=== PATIENT | male | born 1950 | race Two or more races ===

== ENCOUNTER 2019-04-27 06:36 | Day surgery (SDC) | payer OTHER ==
[~2019-04-27] VITALS: Ht 170.2 cm; Wt 130.6 kg
[2019-04-27] MEDS ORDERED: LIDOCAINE 2%HCL (LOCAL ANESTH.) INJ 20ML MDV ONE ×4 (07:21→08:33)
[2019-04-27] MEDS ORDERED: IOHEXOL 350 MG/ML 100ML IJ ONE ×2 (07:21→08:03)
[2019-04-27] MEDS ORDERED: SODIUM CHL 0.9% 0 ML ONE (08:02)
[2019-04-27] MEDS ORDERED: fentaNYL CITRATE 100 MCG/2 ML VL ONE (08:02)
[2019-04-27] MEDS ORDERED: ANGIOMAX 250 MG VIAL IV ONE (08:02)
[2019-04-27] MEDS ORDERED: MIDAZOLAM HCL 1MG/1ML-2 ML VIAL ONE (08:02)
[2019-04-27 08:11] LABS: INR 1.01 (0.9-1.15); Partial Thromboplastin Time 25.9 sec (23.64-32.05)
[2019-04-27] MEDS ORDERED: ACETAMINOPHEN 325 MG TAB PO PRN (10:00)
[2019-04-27 10:34] LABS: Hematocrit 48.3 % (41.0-53.0); Hemoglobin 15.9 g/dL (13.5-17.5)
[2019-04-27] MEDS ORDERED: LISI-275 PO (11:17)
[2019-04-27] MEDS ORDERED: TAMS0.4C36 PO (11:17)
[2019-04-27] MEDS ORDERED: SIMV-8 PO (11:17)
[2019-04-27] MEDS ORDERED: CHOL100040 PO (11:17)
[2019-04-27] MEDS ORDERED: MAGN400T5 PO (11:17)
[2019-04-27] MEDS ORDERED: ASPI-404 PO (11:17)
--- NOTE | 2019-04-27 15:25 | NUR ---
1430- Per physician, patient called into office from home with complaint of groin bleed from access site. Per physician patient was directed to come back to laboratory equipment cleaner. 1500- Patient arrived to laboratory equipment cleaner ambulating, escorted to a gurney. The right groin access site assessed. Dressing intact with the gauze being 90% saturated with blood. No hematoma noted. Dressing changed and no active bleeding noted and no hematoma noted. No acute pain complaint from patient noted. Instructions given to patient and spouse regarding precautions for hematoma and bleeding and to go to ER department for any future incidents. Patient and family verbalized understanding. 1520- Patient and family escorted to exit with no incident.
== END 2019-04-27 12:00 | disposition home or self-care (01) ==
LOC: CATH 06:36
PROVIDERS: ATTEND Internal Medicine Cardiovascular Disease
DX: I25.2 Old myocardial infarction (principal); I25.118 Atherosclerotic heart disease of native coronary artery with other forms of angina pectoris; E11.22 Type 2 diabetes mellitus with diabetic chronic kidney disease; I12.9 Hypertensive chronic kidney disease with stage 1 through stage 4 chronic kidney disease, or unspecified chronic kidney disease; N18.3 Chronic kidney disease, stage 3 (moderate); G43.909 Migraine, unspecified, not intractable, without status migrainosus; E78.5 Hyperlipidemia, unspecified; Z79.82 Long term (current) use of aspirin; Z79.899 Other long term (current) drug therapy
CPT/HCPCS: 36415; 71045; 85014; 85018; 85610; 85730; 93460; 99152; 99153; C1751; J2250

== ENCOUNTER 2021-03-14 11:42 | Emergency (ER) | payer MEDICARE ==
[~2021-03-14] VITALS: Ht 172.7 cm; Wt 128.4 kg
[~2021-03-14 11:42] MED LIST: ASPI-543 PO; CHOL100040 PO; LISI-275 PO; MAGN400T40 PO; SIMV-8 PO; TAMS0.4C36 PO
[2021-03-14 12:09] VITALS: BP 111/69
[2021-03-14] MEDS ORDERED: HYDROcodone-ACET 5/325MG TAB PO ONE (13:15)
== END 2021-03-14 13:46 | disposition home or self-care (01) ==
LOC: ER 11:42
DX: M43.6 Torticollis (principal); E11.9 Type 2 diabetes mellitus without complications; Z79.82 Long term (current) use of aspirin; Z79.899 Other long term (current) drug therapy
CPT/HCPCS: 72040

== ENCOUNTER 2024-12-06 06:36 | Day surgery (SDC) | payer OTHER ==
[2024-12-06] VITALS (8 sets, daily range): BP systolic 126–154; BP diastolic 67–77; PULSE 54–69; RESP 13–20; TEMP 97.9; O2SAT 92–96
[~2024-12-06] VITALS: Ht 170.2 cm; Wt 123.8 kg
[~2024-12-06 06:36] MED LIST changes: +AMLO1TAB22 PO; +ATOR20TA50 PO; -CHOL100040 PO; +CHOL20007 PO; +GABA-1250 PO; -LISI-275 PO; +LISI2.5T47 PO; +MELO7.5T7 PO; -SIMV-8 PO; -TAMS0.4C36 PO; +TAMS0.4C39 PO; +ZINC50TA7 PO
[2024-12-06] MEDS ORDERED: IODIXANOL 320MG/ML 100ML BTL IV ONE (07:25)
[2024-12-06] MEDS ORDERED: ANGIOMAX 250 MG VIAL IV ONE (07:52)
[2024-12-06] MEDS ORDERED: LIDOCAINE 2%HCL (LOCAL ANESTH.) INJ 20ML MDV ONE (07:53)
[2024-12-06] MEDS ORDERED: MIDAZOLAM HCL 2MG/2ML 2ml VIAL (1mg/ml) ONE (07:53)
[2024-12-06] MEDS ORDERED: fentaNYL CITRATE 100 MCG/2 ML VL ONE (07:53)
[2024-12-06] MEDS ORDERED: HEPARIN SODIUM (PORCINE) 5000 UNITS/ML 1ML VIAL ONE (08:20)
[2024-12-06] MEDS ORDERED: VERAPAMIL 2.5MG/ML INJ 2ML VIAL IV ONE (08:20)
--- NOTE | 2024-12-06 09:00 | DVHOP2 ---
Operative Report Operative Report CARDIAC [facility]EWEL [facility] PROCEDURE REPORT [place], [place] Date of Service: 12/06/24 Hosiery Mater: Pratik Mckinney MD PROCEDURES PERFORMED: Coronary angiogram, left heart catheterization, conscious sedation administration and supervision, less than 15 minutes; fluoroscopy use and interpretation. PREOPERATIVE DIAGNOSES: Abnormal stress test with CCS class 3 angina, POSTOP DIAGNOSIS: cad DESCRIPTION OF PROCEDURE: The patient or appropriate family signed informed consent understanding the risks, benefits and alternatives of the procedure, they wished to proceed. The patient was brought to the cardiac labor mediator in n.p.o. state. The patient was prepped in a sterile fashion. Sedation was used per cardiac cath protocol. I administered 2 mL of 2% lidocaine to the right wrist. With an antegrade front wall puncture. I cannulated the right radial artery and placed a 6-[place] Glidesheath slender. Next, an intra-arterial spasmolytic was administered. Next, a - 6French Dustin catheter and XXXXX guide and were used for coronary angiogram and LVEDP measurement and pressure pullback. At the completion of procedure, all guides and wires were removed, and there were no immediate complications. 4000 U of IV heparin given. FINDINGS: RCA: Moderate vessel off the right sinus of Valsalva, there is no severe flow limiting stenosis. mild diffuse plaquing. LEFT MAIN: Moderate size left main, it bifurcates into LAD and circumflex. no severe stenosis. CIRCUMFLEX: Moderate caliber vessel coming off the left main with no flow limiting stenosis. 40% mid CX stenosis noted. LAD: LAD is a moderate caliber vessel coming of the left main. high take off D1 with modrate diffuse plaquing. mid LAD has 50% stenosis unchanged [id number]. distal LAD is patent with mild plaque LVEDP of 9 mmhg CONCLUSIONS: 1. moderate CAD PLAN: Aggressive risk factor modification and medical management for the patient. PRATIK MCKINNEY MD Dec 06, 2024 09:00
== END 2024-12-06 11:15 | disposition home or self-care (01) ==
LOC: CATH 06:36
PROVIDERS: ATTEND Internal Medicine
DX: I25.118 Atherosclerotic heart disease of native coronary artery with other forms of angina pectoris (principal); I51.7 Cardiomegaly; R94.39 Abnormal result of other cardiovascular function study; Z79.82 Long term (current) use of aspirin; Z79.899 Other long term (current) drug therapy
CPT/HCPCS: 93458; C1894; J1644; J2250; J3010; J7030; Q9967; 99152